=== PATIENT | female | born 1985 ===

== ENCOUNTER 2018-11-01 05:57 | Day surgery (SDC) | payer OTHER ==
[2018-10-25 09:19] VITALS: BMI 35.2
[2018-11-01] MEDS ORDERED: Midazolam 2 MG/2 ML VIAL ONE (07:54)
[2018-11-01] MEDS ORDERED: Propofol 10 mg/ml Inj (20 ML) ONE (07:55)
[2018-11-01] MEDS ORDERED: ceFAZolin 1 gm in NS 2 GM/200 ML BAG IVPB ONE (07:58)
[2018-11-01] MEDS ORDERED: Neostigmine 1:1000 (1 mg/ml) Inj ONE (08:50)
--- NOTE | 2018-11-01 09:10 | PCM.SURG1 ---
Surgeon's Initial Post Op Note - Surgeon's Notes Surgeon: MD [employer] Supervisor: Jenna, PGY3. Sadaf Weber, MS3 Pre-Operative Diagnosis: Cholecystitis Operative Findings: inflamed gallbladder, adhesions Post-Operative Diagnosis: cholecystitis Operation Performed: Laparoscopic cholecystectomy Specimen/Specimens Removed: gallbladder Estimated Blood Loss: EBL {In ML}: 30 Date of Surgery/Procedure: 11/01/18 Time of Surgery/Procedure: 08:00
[2018-11-01 09:27] VITALS: O2SAT 99
[2018-11-01] MEDS ORDERED: Lactated Ringer's 1,000 ML IV ONE (09:43)
[2018-11-01] MEDS: HYDROmorphone 0.5 mg/0.5 ml ISec IVP PRN ×2 (09:43→10:32)
[2018-11-01 11:52] VITALS: RESP 18
[2018-11-01 11:56] VITALS: BP 117/68; PULSE 89; TEMP 97
--- NOTE | 2018-11-01 21:17 | OP ---
PROCEDURE DATE: 11/01/2018 PREOPERATIVE DIAGNOSIS: Cholecystitis. POSTOPERATIVE DIAGNOSIS: Cholecystitis. PROCEDURE: Laparoscopic cholecystectomy. SURGEON: Julio Cesar Lieberman MD. COMMUNICATIONS MARKETING INTERN: Ghassan West, PGY-3. TYPE OF ANESTHESIA: General. ANESTHESIA ADMINISTERED BY: Hi Huff MD. ESTIMATED BLOOD LOSS: 30 mL. DESCRIPTION OF PROCEDURE: Upon intubation and sedation, the patient was placed in the supine position and abdomen was prepped and draped in the usual sterile fashion. Time-out was called. Incision was made infraumbilically in a transverse manner for a 12-mm port. Veress needle was used to enter the abdomen. Upon entering the abdomen, insufflation was turned on with low entry pressures and insufflated up until pressure of 15 mmHg. Upon insufflation of the abdomen, 12-mm trocar was placed infraumbilically followed by camera to visualize the intraabdominal space. Inspection of the intraabdominal space showed no injury and showed multiple adhesions around the umbilicus, which contained no bowel. A subxiphoid incision was also made with a 12-mm port and trocar was placed. Grasper was used to grasp the gallbladder and gallbladder was seen, visualized and inflamed. Two more right lateral trocars were placed 5-mm each. Grasper was placed to grasp the fundus of the gallbladder and retracted cephalad. Another grasper was placed in the infundibulum showing the node of Calot and the triangle of Calot. [place] dissector was used to dissect out the cystic duct, which was seen directly entering into the gallbladder. Upon dissecting off the cystic duct, two clips were placed distally on the cystic duct and one was placed proximally on the cystic duct. Laparoscopic scissors was used to transect the cystic duct. Care was then directed to the cystic artery, which was also dissected out. Two clips were placed on the cystic artery distally and one proximally and laparoscopic scissors was used to transect the cystic artery. Upon transection of both the cystic duct and cystic artery, electrocautery with an laparoscopic spatula was used to dissect the gallbladder off of the liver bed. Upon dissection of the gallbladder off the liver bed, specimen of gallbladder was placed in an EndoCatch bag and removed via the umbilical incision. Laparoscopic adhesiolysis was done for adhesions around the umbilical region without any complications. Area of the gallbladder fossa was irrigated and suctioned until clear fluid was seen exiting the suction tubing. There was no active bleeding noted. Abdomen was deflated and all trocars were removed. Infraumbilical incision was closed with the fascia with 0 Vicryl suture in a [id number] manner. All four incisions were closed with 4-0 Monocryl. Dressing used was Steri-Strips and islet dressing. The patient tolerated the procedure well and was transported to the postanesthesia care unit without any complications. Estimated blood loss was 30 mL. Ghassan West DO Julio Cesar Lieberman MD
== END 2018-11-01 14:51 | disposition home or self-care (01) ==
LOC: C.SDS 05:57
PROVIDERS: ATTEND Specialist
DX: K80.20 Calculus of gallbladder without cholecystitis without obstruction (principal)
CPT/HCPCS: 47562; 88304; J0690; J1170; J2250; J2704; J2710; J3010; J7040; J7120